=== PATIENT | male | born 1980 | race Caucasian/White ===

== ENCOUNTER 2023-02-23 09:50 | Outpatient (CLI) | payer OTHER | END 2023-02-23 09:51 | disposition home or self-care (01) | LOC: CSHRAD 09:50 | PROVIDERS: ATTEND Neurological Surgery | DX: M47.12 Other spondylosis with myelopathy, cervical region (principal); Z98.890 Other specified postprocedural states | CPT/HCPCS: 72040 ==

== ENCOUNTER 2023-04-21 13:41 | Outpatient (CLI) | payer OTHER | END 2023-04-21 13:42 | disposition home or self-care (01) | LOC: CSHRAD 13:41 | PROVIDERS: ATTEND Neurological Surgery | DX: M47.12 Other spondylosis with myelopathy, cervical region (principal); Z98.890 Other specified postprocedural states | CPT/HCPCS: 72040 ==

== ENCOUNTER 2023-10-01 10:07 | Outpatient (CLI) | payer OTHER | END 2023-10-01 10:08 | disposition home or self-care (01) | LOC: CSHCT 10:07 | PROVIDERS: ATTEND Psychiatry & Neurology Neurology | DX: M48.02 Spinal stenosis, cervical region (principal) | CPT/HCPCS: 72125 ==